=== PATIENT | female | born 1965 | race Caucasian/White ===

== ENCOUNTER 2020-04-17 20:07 | Emergency (ER) | payer BC ==
--- NOTE | 2020-04-17 20:45 | ER Document Report ---
HPI - HPI Time Seen by Provider: 04/17/20 20:20 Pain Level: 2 Notes: 55-year-old female presents to the emergency room today for evaluation of her right hand after she fell over cement while texting on her phone approximately 1 hour ago. Denies any head trauma or change in level consciousness. Reports pain is 2 out of 5, throbbing achy. Denies any other area of injury. Denies any prior hand injury. Denies any numbness or tingling to the hand. Has not tried any [id number] medications for pain control. Denies any open wounds or lacerations. Denies any fevers chills, numbness or tingling in bilateral hands or wrists. - REPRODUCTIVE Reproductive: DENIES: : Past Medical History - General Information source: Patient - Social History Smoking Status: Current Every Day Smoker Frequency of alcohol use: None Drug Abuse: None Family History: Reviewed & Not Pertinent Vertical Provider Document - CONSTITUTIONAL Agree With Documented VS: Yes Exam Limitations: No Limitations General Appearance: WD/WN Notes: MEDICATIONS: I agree with the patient medications as charted by the RN. ALLERGIES: I agree with the allergies as charted by the RN. PAST MEDICAL HISTORY/PAST SURGICAL HISTORY: Reviewed and agree as charted by RN. SOCIAL HISTORY: Reviewed and agree as charted by RN. FAMILY HISTORY: No significant familial comorbid conditions directly related to patient complaint EXAM: Reviewed vital signs as charted by RN. PHYSICAL EXAMINATION: reviewed vital signs by RN GENERAL: Well-appearing, well-nourished and in no acute distress. HEAD: Atraumatic, normocephalic. EYES: Pupils equal round and reactive to light, extraocular movements intact, conjunctiva are normal. ENT: Nares patent, oropharynx clear without exudates. Moist mucous membranes. NECK: Normal range of motion, supple without lymphadenopathy LUNGS: Breath sounds clear to auscultation bilaterally and equal. No wheezes rales or rhonchi. HEART: Regular rate and rhythm without murmurs ABDOMEN: Soft, nontender, nondistended abdomen. No guarding, no rebound. No masses appreciated. Female : deferred Musculoskeletal: Normal range of motion, no pitting or edema. No cyanosis. NEUROLOGICAL: Cranial nerves grossly intact. Normal speech, normal gait. Normal sensory, motor exams. Pain to right 5th phalange at proximal aspect. no pain to wrist with flexion, extension, inversion, eversion of wrist. digits in right and left with full aprom. Apprentice Lineman Third Step + 2 BUE equally. Snuffbox tenderness negative on right. radial pulses + 2 BUE equally. Negative kanavels sign bilaterally. No open wounds or drainage from wrist. No vascular compromise.No body crepitus. focal area of TTP to right 5th phalange at proximal base. no pain with opposition, flexion, extension, abduction and adduction on right fingers. Motor and sensory function of ulnar, radial, medial nerves intact bilaterally and equally. strength 5/5 in BUE equally. No open wounds or lacerations PSYCH: Normal mood, normal affect. SKIN: Warm, Dry, normal turgor, no rashes or lesions noted. Course - Re-evaluation Re-evalutation: 04/17/20 21:29 Afebrile vital stable no distress. Nurses notes reviewed. X-ray of right hand shows fracture involving the proximal aspect of the proximal phalanx of the fifth finger with some medial angulation. Patient placed in a gutter splint. Consent by patient given to place right gutter splint,. cms intact, sensory motor function intact in bilateral upper extremities prior to splint application fiberglass splint placed without incident. cms intact 20 minutes after splint application. Splint is in good alignment. Bilateral upper extremities with motor and sensory function intact 20 minutes after application. Pt stated that splint felt comfortable. Patient advised to not drive vehicle, operate heavy machinery or drink alcohol while taking [place] as it can cause additional impairment of cognitive function. Apply ice 20 minutes on 20 minutes off several times a day, keep elevated above level of heart. Follow-up with an client application support specialist for reevaluation within the next 24 to 48 hours. Patient states she is traveling back to [place] tomorrow, discussed with her that she does need to establish care with an client application support specialist for further evaluation. Advised alternating Tylenol and ibuprofen for pain control. After performing a Medical Screening Examination, I estimate there is LOW risk for OPEN FRACTURE, COMPARTMENT SYNDROME, DEEP VENOUS THROMBOSIS, ACUTE TENDON RUPTURE, or NEUROVASCULAR INJURY thus I consider the discharge disposition reasonable. I have reevaluated this patient multiple times and no significant life threatening changes are noted. The patient and I have discussed the diagnosis and risks, and we agree with discharging home to closely follow-up with their primary doctor or the referral orthopedist with the understanding that symptoms and presentations can change. We also discussed returning to the Emergency Department immediately if new or worsening symptoms occur. We have discussed the symptoms which are most concerning (e.g., changing or worsening pain, numbness, weakness) that necessitate immediate return 04/17/20 21:32 - Vital Signs Vital signs: Temp Pulse Resp BP Pulse Ox 98.8 F 105 H 20 131/79 H 97 04/17/20 20:14 04/17/20 20:14 04/17/20 20:14 04/17/20 20:14 04/17/20 20:14 Discharge - Discharge Clinical Impression: Finger fracture, right Qualifiers: Encounter type: initial encounter Finger: little finger Fracture type: closed Phalanx: proximal Fracture alignment: nondisplaced Qualified Code(s): S62.646A - Nondisplaced fracture of proximal phalanx of right little finger, initial encounter for closed fracture Condition: Stable Disposition: HOME, SELF-CARE Instructions: Compartment Syndrome Cautions ([facility]), Fractured Finger ([facility]), Oral Narcotic Medication ([facility]), Splint Pending Casting ([facility]), Splint Precautions ([facility]), Temporary Splint ([facility]) Additional Instructions: You broke your right little finger today. Please follow-up with the client application support specialist within the next 24 to 48 hours for reevaluation as you also need a cast placed within the next week. Please do not drive, drink alcohol or operate heavy machinery while taking narcotics as it can cause sedation or impairment of cognitive function. Alternate between Tylenol and ibuprofen for pain control. We discussed compartment syndrome and signs and symptoms to look for. Please do not get splint wet. Follow-up with primary care provider within the next 24 to 48 hours as well for reevaluation. Return immediately for any new or worsening symptoms. Follow up with primary care provider, call tomorrow to make followup appointment. Referrals: JOSE ALFREDO BOYD MD [ACTIVE STAFF] - Follow up as needed MAULIK ORLANDO MD [ACTIVE STAFF] - Follow up in 3-5 days
[2020-04-17] MEDS ORDERED: HYDROCODONE/ACETAMINOPHEN 5-325 MG (6 TAB/ER DISP) PO PRN (21:11)
--- NOTE | 2020-04-17 21:28 | RADIOLOGY REPORT (SQ) ---
EXAM DESCRIPTION: X-ray right hand 3 views COMPLETED DATE/TME: 04/17/2020 20:50 CLINICAL HISTORY: 55 years, Female, right hand pain, r/o fx COMPARISON: None. NUMBER OF VIEWS: TECHNIQUE: LIMITATIONS: None. FINDINGS: There is fracture involving the proximal aspect of the proximal phalanx of the fifth finger, with some medial angulation. There are no additional fractures. IMPRESSION: Fracture of the proximal phalanx of the fifth finger. copyright 2010 [employer]- All Rights Reserved
[2020-04-17 21:49] VITALS: BP 105/79
== END 2020-04-17 21:55 | disposition home or self-care (01) ==
LOC: ER 20:07
DX: S62.646A Nondisplaced fracture of proximal phalanx of right little finger, initial encounter for closed fracture (principal); W19.XXXA Unspecified fall, initial encounter; Y93.C2 Activity, hand held interactive electronic device; F17.200 Nicotine dependence, unspecified, uncomplicated
CPT/HCPCS: 99283